=== PATIENT | male | born 1965 | race Caucasian/White ===

== ENCOUNTER 2017-07-25 03:31 | Emergency (ER) | payer BC, OTHER ==
[~2017-07-25] VITALS: Ht 172.7 cm; Wt 155.2 kg
[~2017-07-25 03:31] MED LIST: ALBUAER2 INH; ASCO100T4 PO; ASPI81TA28 PO; CALC-20 PO; CHOL200010 PO; FEXO1TAB46 PO; FLUT0.15 NAE; LEVO175T3 PO; METO50TA8 PO; MULTTAB5 PO; OMEG10007 PO
[2017-07-25 03:34] VITALS: TEMP 36.7; Ht 172.7 cm; Wt 155.2 kg
[2017-07-25] MEDS ORDERED: LORAZEPAM 1 MG TAB SL STA (03:57)
--- NOTE | 2017-07-25 04:03 | EMERGENCY ROOM VISIT NOTE ---
History Report prepared by Rudolph: Lisa Crevantes Under the Supervision of: Dr. Anna Ochoa D.O. First contact with patient: 03:44 Chief Complaint: OTHER COMPLAINT Stated Complaint: ANXIETY History of Present Illness The patient is a 51 year old male who presents to the Emergency Room with complaints of persistent anxiety that started about a half an hour ago. The patient states he woke up and felt "weird" and very anxious. He notes he does not know why this happened and it has never happened before. He denies any personal stressors at the moment. He reports he was having a "catch in his breath". He states, "I feel like that washed out feeling after an adrenaline wall". He notes his heart was not racing. The patient has a history of high blood pressure, high cholesterol, AVNRT, and hypothyroidism. 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 He is taking Synthroid for his hypothyroidism. He notes he had appendicitis many years ago. The patient states he started taking melatonin about a month ago because he occasionally has problems staying asleep. The patient reports he has chills. He denies leg cramping or swelling. Source of History: patient Onset: half hour ago Position: other (anxiety) Timing: other (persistent) Associated Symptoms: + chills Note: Denies leg cramping or swelling. Review of Systems See HPI for pertinent positives & negatives. A total of 10 systems reviewed and were otherwise negative. Past Medical & Surgical Medical Problems: (1) Arrhythmia (2) SVT (supraventricular tachycardia) Family History FH: heart attack Heart disease Hypertension Kidney disease Kidney stones Social History Smoking Status: Never Smoker Marital Status: Housing Status: lives with family Occupation Status: employed Current/Historical Medications Scheduled Ascorbic Acid (Vitamin C), 100 MG PO QAM Aspirin (Aspirin Ec), 81 MG PO HS Calcium Carbonate-Vitamin D (Calcium 600 + D), 1 TAB PO QAM Cholecalciferol (Vitamin D), 6,000 INTER.UNIT PO QAM Fish Oil ([place]-3), 1 CAP PO BID Glucosamine Sulfate (Glucosamine), 1,000 MG PO BID Levothyroxine Sodium (Levothyroxine Sodium), 175 MCG PO QAM Metoprolol Succ (Toprol Xl) (Toprol-Xl), 50 MG PO QPM Multiple Vitamins W/ Minerals (Centrum), 1 TAB PO DAILY Scheduled PRN Fexofenadine Hcl (Katalina), 180 MG PO QPM PRN for allergy sx Fluticasone Propionate (Nasal) (Flonase Allergy Relief), 2 SPRAYS SERGIO DAILY PRN for Allergy Symptoms Allergies Coded Allergies: Clindamycin (Unverified Adverse Reaction, Intermediate, rash, 11/01/15) Sulfamethoxazole w/Trimethoprim (Verified Adverse Reaction, Intermediate, SHORTNESS OF BREATH, 07/25/17) Physical Exam Vital Signs Date Time Temp Pulse Resp B/P (MAP) Pulse Ox O2 Delivery O2 Flow Rate FiO2 07/25/17 05:31 54 18 112/58 96 07/25/17 04:45 54 18 115/76 96 Room Air 07/25/17 03:34 36.7 65 20 140/89 96 Room Air Physical Exam General: Appears anxious, shaking feet. HEENT: Head - normocephalic and atraumatic Pupils are equal, round, and reactive to light. Extraocular eye muscles are intact, and sclera are anicteric. Nose - moist nasal mucosa without discharge. Mouth - moist buccal mucosa. Oropharynx is nonerythematous and there is no tonsillar exudate or edema noted. Neck: Supple; no JVD, nuchal rigidity, cervical lymphadenopathy. Heart: Regular rate and rhythm. There is a normal S1 and S2 with no murmurs, clicks, or gallops appreciated. Lungs: Clear to auscultation bilaterally with no wheezes, rales, or rhonchi. Abdomen: Soft, completely nontender, nondistended, with good bowel sounds. There are no palpable pulsatile masses or hepatosplenomegaly. There is no guarding, rigidity, or rebound noted. Extremities: No evidence of cyanosis, clubbing, or edema. There are easily palpable peripheral pulses. Skin: warm and dry with good turgor and no rashes. Medical Decision & Procedures Laboratory Results 07/25/17 04:15 Red Blood Count 4.92, Mean Corpuscular Volume 83.5, Mean Corpuscular Hemoglobin 28.7, Mean Corpuscular Hemoglobin Concent 34.3, Mean Platelet Volume 9.6, Neutrophils (%) (Auto) 56.4, Lymphocytes (%) (Auto) 32.4, Monocytes (%) (Auto) 5.0, Eosinophils (%) (Auto) 5.2, Basophils (%) (Auto) 0.6, Neutrophils # (Auto) 3.07, Lymphocytes # (Auto) 1.76, Monocytes # (Auto) 0.27, Eosinophils # (Auto) 0.28, Basophils # (Auto) 0.03 07/25/17 04:15 Test 07/25/17 04:15 07/25/17 04:22 White Blood Count 5.43 K/uL (4.8-10.8) Red Blood Count 4.92 M/uL (4.7-6.1) Hemoglobin 14.1 g/dL (14.0-18.0) Hematocrit 41.1 % (42-52) Mean Corpuscular Volume 83.5 fL (80-100) Mean Corpuscular Hemoglobin 28.7 pg (25-34) Mean Corpuscular Hemoglobin Concent 34.3 g/dl (32-36) Platelet Count 138 K/uL (130-400) Mean Platelet Volume 9.6 fL (7.4-10.4) Neutrophils (%) (Auto) 56.4 % Lymphocytes (%) (Auto) 32.4 % Monocytes (%) (Auto) 5.0 % Eosinophils (%) (Auto) 5.2 % Basophils (%) (Auto) 0.6 % Neutrophils # (Auto) 3.07 K/uL (1.4-6.5) Lymphocytes # (Auto) 1.76 K/uL (1.2-3.4) Monocytes # (Auto) 0.27 K/uL (0.11-0.59) Eosinophils # (Auto) 0.28 K/uL (0-0.5) Basophils # (Auto) 0.03 K/uL (0-0.2) RDW Standard Deviation 40.4 fL (36.4-46.3) RDW Coefficient of Variation 13.4 % (11.5-14.5) Immature Granulocyte % (Auto) 0.4 % Immature Granulocyte # (Auto) 0.02 K/uL (0.00-0.02) Anion Gap 5.0 mmol/L (3-11) Est Creatinine Clear Calc Drug Dose 122.4 ml/min Estimated GFR () 96.3 Estimated GFR (Non- 83.1 BUN/Creatinine Ratio 16.7 (10-20) Calcium Level 8.4 mg/dl (8.5-10.1) Total Bilirubin 0.4 mg/dl (0.2-1) Aspartate Amino Transf (AST/SGOT) 21 U/L (15-37) Alanine Aminotransferase (ALT/SGPT) 31 U/L (12-78) Alkaline Phosphatase 96 U/L (45-117) Total Protein 6.8 gm/dl (6.4-8.2) Albumin 3.5 gm/dl (3.4-5.0) Globulin 3.3 gm/dl (2.5-4.0) Albumin/Globulin Ratio 1.1 (0.9-2) Thyroid Stimulating Hormone (TSH) 5.900 uIu/ml (0.300-4.500) Urine Color YELLOW Urine Appearance CLEAR (CLEAR) Urine pH 5.0 (4.5-7.5) Urine Specific [place] 1.015 (1.000-1.030) Urine Protein NEG (NEG) Urine Glucose (UA) NEG (NEG) Urine Ketones NEG (NEG) Urine Occult Blood NEG (NEG) Urine Nitrite NEG (NEG) Urine Bilirubin NEG (NEG) Urine Urobilinogen NEG (NEG) Urine Leukocyte Esterase NEG (NEG) Laboratory results per my review. Medications Administered Medications (Trade) Dose Ordered Sig/Kemar Route Start Time Stop Time Status Last Admin Dose Admin Lorazepam (Ativan Tab) 1 mg NOW STAT SL 07/25/17 03:57 07/25/17 03:59 DC 07/25/17 04:02 1 MG Procedure 0357: Ativan Tab 1 mg SL. ECG Per My Interpretation Indication: SOB/dyspnea Rate (beats per minute): 56 Rhythm: sinus bradycardia Findings: no acute ischemic change, no ectopy, other (no ST segment changes) ED Course 0344: Past medical records reviewed. The patient was evaluated in room A10. A complete history and physical exam was performed. A 12-lead EKG was obtained. Labs were drawn as above. 0357: Ativan Tab 1 mg SL. 0425: I rechecked the patient and he is feeling slightly better after the Ativan. We were awaiting additional lab results. 0515: I rechecked the patient and he feels much better. He still has a little bit of shaking in his left foot. I went over labs with the patient and his . The patient is ready for discharge. Medical Decision The patient is a 51 year old male who presents to the ED with anxiety. Differential diagnosis includes hypothyroidism, hyperthyroidism, anxiety, panic attack, cardiac dysrhythmia. Lab results show: Normal white count Normal H & H TSH elevated at 5.9 Normal renal function Normal glucose Normal LFT's Normal urinalysis This is a 51-year-old male patient who awoke from sleep with shaking and a feeling as if he could not catch his breath. He was initially concerned about his reentrant tachycardia but noted that his heart rate was normal. The patient is on Synthroid. His TSH is elevated and this will need to be adjusted by the PCP. After receiving sublingual Ativan, the patient feels much better. His EKG was normal here in the emergency department. His vital signs were stable. He was feeling much better at the time of discharge. Medication Reconcilliation Current Medication List: was personally reviewed by me Impression Primary Impression: Hypothyroid Scribe Attestation The scribe's documentation has been prepared under my direction and personally reviewed by me in its entirety. I confirm that the note above accurately reflects all work, treatment, procedures, and medical decision making performed by me. Departure Information Dispostion Home / Self-Care Referrals Teodoro Arnett M.D. (PCP) Patient Instructions My [facility] Additional Instructions Rest. Limit stress and anxiety. Follow up with PCP - dose of synthroid. Follow up with PCP by the end of the week for a recheck if symptoms persist. Problem Qualifiers Primary Impression: Hypothyroid Hypothyroidism type: unspecified Qualified Codes: E03.9 - Hypothyroidism, unspecified
[2017-07-25 04:28] LABS: BASO % 0.6 %; BASO ABS # 0.03 K/uL (0-0.2); EOS % 5.2 %; EOS ABS # 0.28 K/uL (0-0.5); HEMATOCRIT 41.1 % (42-52); HEMOGLOBIN 14.1 g/dL (14.0-18.0); IG# 0.02 K/uL (0.00-0.02); LYMPH % 32.4 %; LYMPH ABS # 1.76 K/uL (1.2-3.4); MEAN CELL VOLUME 83.5 fL (80-100); MEAN CORPUSCULAR HEMOGLOBIN 28.7 pg (25-34); MEAN CORPUSCULAR HGB CONC 34.3 g/dl (32-36); MEAN PLATELET VOLUME 9.6 fL (7.4-10.4); MONO ABS # 0.27 K/uL (0.11-0.59); NEUT % 56.4 %; NEUT ABS # 3.07 K/uL (1.4-6.5); PLATELET COUNT 138 K/uL (130-400); RED CELL DISTRIBUTION WIDTH CV 13.4 % (11.5-14.5); RED CELL DISTRIBUTION WIDTH SD 40.4 fL (36.4-46.3); WHITE BLOOD COUNT 5.43 K/uL (4.8-10.8)
[2017-07-25 04:48] LABS: ALBUMIN 3.5 gm/dl (3.4-5.0); CALCIUM 8.4 mg/dl (8.5-10.1); CREATININE 1.03 mg/dl (0.60-1.40); POTASSIUM 3.9 mmol/L (3.5-5.1)
[2017-07-25 04:59] LABS: TOTAL PROTEIN 6.8 gm/dl (6.4-8.2)
[2017-07-25] MEDS ORDERED: GLUC10007 PO (05:05)
[2017-07-25 05:31] VITALS: BP 112/58; PULSE 54; O2SAT 96
== END 2017-07-25 05:32 | disposition home or self-care (01) ==
LOC: C.EDB 03:32 → C.EDA 05:32
DX: E03.9 Hypothyroidism, unspecified (principal); R79.89 Other specified abnormal findings of blood chemistry; F41.9 Anxiety disorder, unspecified; I47.1 Supraventricular tachycardia; Z79.82 Long term (current) use of aspirin; Z88.1 Allergy status to other antibiotic agents; Z88.2 Allergy status to sulfonamides

== ENCOUNTER 2017-11-24 10:20 | Emergency (ER) | payer OTHER ==
[~2017-11-24] VITALS: Ht 172.7 cm; Wt 151.4 kg
[~2017-11-24 10:20] MED LIST changes: -ALBUAER2 INH; +ASPCH81X PO; -ASPI81TA28 PO; +ATV/1 PO; -CALC-20 PO; +CALC-393 PO; -CHOL200010 PO; +CHOL20009 PO; +GLUCCAP31 PO; +HYDR25CA PO; +MELA1TAB5 PO; +MULT-506 PO; -MULTTAB5 PO; +SERT50TA PO; +VNTHFA/IN INH
[2017-11-24 10:26] VITALS: Ht 172.7 cm; Wt 151.4 kg
[2017-11-24 11:17] LABS: HEMATOCRIT 39.8 % (42-52); MEAN CELL VOLUME 82.9 fL (80-100); MEAN CORPUSCULAR HEMOGLOBIN 29.2 pg (25-34); MEAN CORPUSCULAR HGB CONC 35.2 g/dl (32-36); MEAN PLATELET VOLUME 9.9 fL (7.4-10.4); PLATELET COUNT 160 K/uL (130-400); RED CELL DISTRIBUTION WIDTH CV 13.5 % (11.5-14.5); RED CELL DISTRIBUTION WIDTH SD 40.5 fL (36.4-46.3); WHITE BLOOD COUNT 5.03 K/uL (4.8-10.8)
--- NOTE | 2017-11-24 11:23 | DIAGNOSTIC IMAGING REPORT ---
CHEST ONE VIEW PORTABLE CLINICAL HISTORY: 52 years-old Male presenting with anxiety, left arm pain. TECHNIQUE: Portable upright AP view of the chest was obtained. COMPARISON: 09/20/2017. FINDINGS: Cardiomediastinal silhouette normal. No focal opacity. No large effusion or pneumothorax. Degenerative changes of the thoracic spine. Upper abdomen normal. IMPRESSION: 1. No acute cardiopulmonary disease. Electronically signed by: Aron Torres M.D. 11/24/2017 11:21 AM Dictated Date/Time: 11/24/2017 11:20 AM
[2017-11-24 11:27] VITALS: TEMP 36.9; O2SAT 95
[2017-11-24 11:29] LABS: ALBUMIN 3.6 gm/dl (3.4-5.0); CALCIUM 8.5 mg/dl (8.5-10.1); CKMB 1.3 ng/ml (0.5-3.6); CREATININE 0.96 mg/dl (0.60-1.40); POTASSIUM 3.6 mmol/L (3.5-5.1); TOTAL PROTEIN 6.8 gm/dl (6.4-8.2)
[2017-11-24] MEDS ORDERED: hydrOXYzine HCL 25 MG TAB PO STA (11:59)
--- NOTE | 2017-11-24 12:57 | EMERGENCY ROOM VISIT NOTE ---
History First contact with patient: 11:39 Chief Complaint: ARM PAIN Stated Complaint: LEFT ARM PAIN,ANXIETY History of Present Illness The patient is a 52 year old male who presents to the Emergency Room with complaints of anxiety, left arm paresthesias, and feelings of tachycardia. The patient states he has a history of anxiety attacks which have presented similarly in the past. The patient states he awoke this morning feeling "off". He states he felt like he had 10-12 cups of coffee, but has not had any caffeine. He states he ate breakfast and noted his symptoms continue to worsen. Symptoms included feeling as if he had to think about breathing, but denies dyspnea. He reports feeling as if he had tachycardia and paresthesias in the left side and left arm. He states he felt flushed and hot, but denies diaphoresis. He states pacing helped his symptoms slightly, but the symptoms were not exertional in nature. The paresthesias are new, but otherwise his symptoms are consistent with previous anxiety episodes. The patient does have a prescription for Ativan and did take the Ativan prior to arrival, but denies significant improvement. He is currently following with a psychologist and his primary care provider and was started on Zoloft this week. He does have prescriptions for hydroxyzine as well as the Ativan, but did not take the hydroxyzine today. The patient states now, approximately 2-1/2 hours later, he is feeling significantly less anxious. He continues to have a slight headache and ongoing pins and needles sensation in his left arm, but denies any chest pain, dyspnea, arm pain, shoulder pain, tachycardia, pressure in his chest, abdominal pain, nausea, or vomiting. He denies any flank pain or urinary symptoms. He denies any confusion, neck pain, fevers or chills. The patient does not have a history of cardiac ischemia, but does have a history of AV node reentrant tachycardia, hypothyroidism, and hypertension. He states these problems have all been well managed. His psychologist has been unable to determine a cause for the patient's anxiety, and he is concerned that there could be a medical cause. He has been working closely with his primary care provider as well as the labs and workup which have been performed here in the emergency department. Review of Systems A complete 10 point review of systems was reviewed with the patient with pertinent positives and negatives as per history of present illness. All else were negative. Past Medical/Surgical History Medical Problems: (1) Arrhythmia (2) HTN (hypertension) (3) SVT (supraventricular tachycardia) Surgical Problems: (1) Hx of appendectomy Family History FH: heart attack Heart disease Hypertension Kidney disease Kidney stones Social History Smoking Status: Never Smoker Smokeless Tobacco Use: No Alcohol Use: none Drug Use: none Marital Status: Housing Status: lives with family Occupation Status: employed Current/Historical Medications Scheduled Ascorbic Acid (Vitamin C), 1 TAB PO DAILY Aspirin (Aspirin Chewable), 81 MG PO QPM Calcium Carbonate (Calcium), 1 TAB PO DAILY Cholecalciferol (Vitamin D), 1 TAB PO TID Fish Oil (Sunflower-3), 1 CAP PO BID Glucosamine Sulfate-Methylsulf (Msm/Glucosamine), 1 CAP PO DAILY Levothyroxine Sodium (Levothyroxine Sodium), 175 MCG PO QAM Melatonin (Kp Melatonin), 1 TAB PO HS Metoprolol Succ (Toprol Xl) (Toprol-Xl), 50 MG PO QPM Multivitamin (Multivitamin), 1 TAB PO DAILY Sertraline (Zoloft), 1 TAB PO DAILY Scheduled PRN Albuterol Hfa (Ventolin Hfa), 2-4 PUFFS INH Q6H PRN for Shortness of Breath Fexofenadine Hcl (Katalina), 180 MG PO QPM PRN for Allergy Symptoms Fluticasone Propionate (Nasal) (Flonase Allergy Relief), 2 SPRAYS SERGIO DAILY PRN for Allergy Symptoms Hydroxyzine Pamoate (Vistaril), 1 CAP PO TID PRN for Anxiety Lorazepam (Ativan), 1 MG PO DIRECTED PRN for Anxiety Physical Exam Vital Signs Date Time Temp Pulse Resp B/P (MAP) Pulse Ox O2 Delivery O2 Flow Rate FiO2 11/24/17 13:01 77 15 115/70 97 11/24/17 12:04 69 15 103/57 96 Room Air 11/24/17 11:27 95 Room Air 11/24/17 11:27 36.9 76 19 106/67 95 Room Air 11/24/17 11:26 76 19 106/67 95 Room Air 11/24/17 10:42 79 11/24/17 10:26 36.9 72 20 134/79 100 Room Air Physical Exam VITALS: Vitals are noted on the nurse's note and reviewed by myself. Vital signs stable. GENERAL: This is a 52-year-old obese white male, in no acute distress, nondiaphoretic, well-developed well-nourished. SKIN: The skin was without rashes, erythema, edema, or bruising. There is no tenting of the skin. Capillary reflex less than 2 seconds. HEAD: Normocephalic atraumatic. EARS: External auditory canals clear, tympanic membranes pearly rapp without erythema or effusion bilaterally. EYES: Pupils equal round and reactive to light and accommodation. Conjunctivae without injection, sclerae without icterus. Extraocular movements intact. NOSE: Patent, turbinates without inflammation or discharge. No sinus tenderness. MOUTH: Mucous membranes moist. Tonsils are not enlarged. Pharynx without erythema or exudate. Uvula midline. Airway patent. Tongue does not deviate. NECK: Supple without nuchal rigidity. No lymphadenopathy. No thyromegaly. Cervical spine is nontender. No JVD. HEART: Regular rate and rhythm without murmurs gallops or rubs. LUNGS: Clear to auscultation bilaterally without wheezes, rales or rhonchi. No dullness to percussion. No retractions or accessory muscle use. ABDOMEN: Positive bowel sounds x 4. Normal tympanic percussion. Soft, nontender, without masses or organomegaly. De [place] Rosa sign negative. No guarding or rebound tenderness. MUSCULOSKELETAL: No muscle atrophy, erythema, or edema noted. Full range of motion without joint tenderness in all extremities. No tenderness to palpation. Normal gait. Strength 5/5 throughout. NEURO: Patient was alert and oriented to person place and time. Normal sensation to light and sharp touch. Deep tendon reflexes 2+ throughout. No focal neurological deficits. Medical Decision & Procedures ER Provider Diagnostic Interpretation: CHEST ONE VIEW PORTABLE CLINICAL HISTORY: 52 years-old Male presenting with anxiety, left arm pain. TECHNIQUE: Portable upright AP view of the chest was obtained. COMPARISON: 09/20/2017. FINDINGS: Cardiomediastinal silhouette normal. No focal opacity. No large effusion or pneumothorax. Degenerative changes of the thoracic spine. Upper abdomen normal. IMPRESSION: 1. No acute cardiopulmonary disease. Electronically signed by: Aron Torres M.D. 11/24/2017 11:21 AM Dictated Date/Time: 11/24/2017 11:20 AM Laboratory Results 11/24/17 10:50 11/24/17 10:50 Test 11/24/17 10:50 11/24/17 11:05 Red Blood Count 4.80 M/uL (4.7-6.1) Mean Corpuscular Volume 82.9 fL (80-100) Mean Corpuscular Hemoglobin 29.2 pg (25-34) Mean Corpuscular Hemoglobin Concent 35.2 g/dl (32-36) RDW Standard Deviation 40.5 fL (36.4-46.3) RDW Coefficient of Variation 13.5 % (11.5-14.5) Mean Platelet Volume 9.9 fL (7.4-10.4) Anion Gap 7.0 mmol/L (3-11) Est Creatinine Clear Calc Drug Dose 127.9 ml/min Estimated GFR () 104.2 Estimated GFR (Non- 89.9 BUN/Creatinine Ratio 10.8 (10-20) Calcium Level 8.5 mg/dl (8.5-10.1) Total Bilirubin 0.4 mg/dl (0.2-1) Aspartate Amino Transf (AST/SGOT) 18 U/L (15-37) Alanine Aminotransferase (ALT/SGPT) 24 U/L (12-78) Alkaline Phosphatase 98 U/L (45-117) Total Creatine Kinase 72 U/L (39-308) Creatine Kinase MB 1.3 ng/ml (0.5-3.6) Creatine Kinase MB Ratio 1.8 (0-3.0) Total Protein 6.8 gm/dl (6.4-8.2) Albumin 3.6 gm/dl (3.4-5.0) Globulin 3.2 gm/dl (2.5-4.0) Albumin/Globulin Ratio 1.1 (0.9-2) Lyme Disease IgG Antibody NEG (NEG) Lyme Disease IgM Antibody NEG (NEG) Bedside Troponin I < 0.030 ng/ml (0-0.045) Medications Administered Medications (Trade) Dose Ordered Sig/Kemar Route Start Time Stop Time Status Last Admin Dose Admin Hydroxyzine HCl (Vistaril Tab) 25 mg NOW STAT PO 11/24/17 11:59 11/24/17 12:00 DC 11/24/17 12:03 25 MG ECG Per My Interpretation Indication: chest pain, SOB/dyspnea Rate (beats per minute): 81 Rhythm: normal sinus Findings: no acute ischemic change, no ectopy Comparison ECG Date: 09/20/17 Change: no significant change ED Course Critical pathways initiated. IV access obtained, labs drawn. Imaging performed and reviewed by myself and radiologist as above. The patient was seen and evaluated as above. The patient was given 25mg PO Hydroxyzine for his symptoms. Labs reviewed by myself. I discussed the findings with the patient at bedside. He was reassessed and notes feeling improvement after the hydroxyzine. He continues to have minimal paresthesias, but states overall he is feeling better. I discussed the case with my attending. Discharge instructions reviewed, the patient was discharged home in good condition. Medical Decision This is a 52-year-old male patient with significant past medical history for hypertension, AV node reentrant tachycardia, hypothyroidism, and anxiety. He presents emergency department today complaining of a likely anxiety attack. He is experiencing left-sided paresthesias, dyspnea which he describes as feeling like he has to think about breathing, as well as a headache. The patient's cardiac workup. The emergency department was overall negative. EKG did not show any ischemia. Vital signs without tachycardia, hypotension, or hypoxia. labs without evidence for infection, anemia, or thrombocytopenia. Renal, hepatic function and electrolytes without abnormality. CK-MB and initial troponin testing negative. Lyme disease testing negative. The patient's symptoms improved with the Ativan he took at home as well as hydroxyzine given to him here in the emergency department. Wells criteria for PE 0 points. Heart score <4. I do not suspect cardiac or pulmonary etiology of patient's symptoms. I did discuss with him the likelihood that the paresthesias could be related to the anxiety episode, but also discussed with him that I recommend he have further workup, especially if the paresthesias remain. The patient was agreeable. He will continue to follow with his primary care provider as well as psychologist to identify the proper management, treatment, and potential triggers for his anxiety episodes. All questions answered patient satisfaction prior to discharge. Etiologies such as panic attack, cardiac ischemia, aortic dissection, pulmonary embolism, pneumonia, pneumothorax, musculoskeletal, infections, gastrointestinal , as well as others were entertained. The chart was completed utilizing [employer] Speech voice recognition software. Grammatical errors, random word insertions, pronoun errors, and incomplete sentences are an occasional consequence of this system due to software limitations, ambient noise, and hardware issues. Any formal questions or concerns about the content, text, or information contained within the body of this dictation should be directly addressed to the provider for clarification. Medication Reconcilliation Current Medication List: was personally reviewed by me Blood Pressure Screening Patient's blood pressure: Normal blood pressure Impression Primary Impression: Acute anxiety Additional Impression: Paresthesias Departure Information Dispostion Home / Self-Care Condition GOOD Referrals Teodoro Arnett M.D. (PCP) Patient Instructions Anxiety Disorder, ED Paraesthesias, [facility] Additional Instructions You were seen in the emergency department today for anxiety symptoms with paresthesias. As discussed, cardiac workup here in the emergency department was negative. Lyme disease testing was ordered. He will receive a phone call if this testing was positive. Follow-up with your primary care provider and psychologist regarding ongoing management of your symptoms. Return immediately to the emergency department for any significantly worsening panic, chest pain, dyspnea, headache, dizziness, nausea, vomiting, or other concerning symptoms. Problem Qualifiers
[2017-11-24 13:01] VITALS: BP 115/70; PULSE 77; O2SAT 97
== END 2017-11-24 13:14 | disposition home or self-care (01) ==
LOC: C.EDB 10:21
DX: F41.9 Anxiety disorder, unspecified (principal); R20.2 Paresthesia of skin; I10 Essential (primary) hypertension; E03.9 Hypothyroidism, unspecified; I47.1 Supraventricular tachycardia; Z79.82 Long term (current) use of aspirin; Z79.899 Other long term (current) drug therapy